=== PATIENT | male | born 1930 | race Caucasian/White ===

== ENCOUNTER 2016-11-14 08:57 | Outpatient (RCR) | payer MEDICARE | END 2017-02-12 | disposition home or self-care (01) | LOC: ONC 08:57 | PROVIDERS: ATTEND Radiology Radiation Oncology | DX: C61 Malignant neoplasm of prostate (principal) | CPT/HCPCS: 36415; 84153 ==

== ENCOUNTER 2017-11-09 08:30 | Outpatient (RCR) | payer MEDICARE | END 2018-02-07 | disposition home or self-care (01) | LOC: ONC 08:30 | PROVIDERS: ATTEND Radiology Radiation Oncology | DX: C61 Malignant neoplasm of prostate (principal) | CPT/HCPCS: 36415; 84153 ==

== ENCOUNTER 2018-10-10 09:54 | Outpatient (RCR) | payer MEDICARE | END 2019-01-08 | disposition home or self-care (01) | LOC: ONC 09:54 | PROVIDERS: ATTEND Radiology Radiation Oncology | DX: C61 Malignant neoplasm of prostate (principal) | CPT/HCPCS: 36415; 84153 ==

== ENCOUNTER → 2019-10-09 | Outpatient (CLI) | payer MEDICARE | LOC: EDSTATUS 01-09 08:51 → ONC 08:52 | PROVIDERS: ATTEND Radiology Radiation Oncology | DX: C61 Malignant neoplasm of prostate (principal) | CPT/HCPCS: 84153 ==

== ENCOUNTER → 2020-10-09 | Outpatient (CLI) | payer MEDICARE | LOC: ONC 11:43 | PROVIDERS: ATTEND Radiology Radiation Oncology | DX: C61 Malignant neoplasm of prostate (principal) | CPT/HCPCS: 84153 ==

== ENCOUNTER → 2021-09-15 | Outpatient (CLI) | payer MEDICARE ==
--- NOTE | 2021-09-15 10:33 | Diagnostic Imaging Report ---
PROCEDURE: US Gallbladder. TECHNIQUE: Multiple real-time grayscale images were obtained over the right upper quadrant in various projections. INDICATION: Right upper quadrant abdominal pain. COMPARISON: None FINDINGS: Liver is normal in size, shape, and echogenicity. No focal hepatic masses are seen. Portal vein shows normal hepatopetal flow. There is no sonographic evidence of intra or extrahepatic biliary ductal dilatation. Common bile duct is within normal limits at 5 mm in diameter. Gallbladder is visualized. There is no cholelithiasis, gallbladder wall thickening, nor pericholecystic free fluid. Visualized portions of the head and proximal body of pancreas are unremarkable. Distal body and tail are not well visualized secondary to overlying bowel gas. Visualized portions of abdominal aorta and IVC are unremarkable. There is no ascites. Right kidney measures 10 cm in length. Multiple large, but anechoic and benign appearing cysts are identified involving the right kidney. Largest measures 8.1 x 6 x 6 cm. IMPRESSION: 1. No cholelithiasis or sonographic evidence of acute cholecystitis. 2. Multiple large right renal cysts. Dictated by: Dictated on workstation # [id number]
== END ==
LOC: RAD 08:15
PROVIDERS: ATTEND Nurse Practitioner
DX: N28.1 Cyst of kidney, acquired (principal)
CPT/HCPCS: 76705

== ENCOUNTER → 2021-09-21 | Outpatient (CLI) | payer MEDICARE ==
[~2021-09-21] MED LIST: CATHETER FLUSH 10 ML SYR IVP PRN
--- NOTE | 2021-09-21 13:09 | Diagnostic Imaging Report ---
INDICATION: Right upper quadrant pain. EXAMINATION: HIDA scan, 09/21/2021. FINDINGS: After uneventful administration of 5.15 mCi of technetium mebrofenin intravenously, subsequent imaging was performed with prompt homogeneous uptake throughout the liver. The gallbladder and small bowel loops seen within less than 60 minutes. Subsequent administration of 8 ounces of Ensure ingested orally with continued imaging performed. Ejection fraction is calculated at 30.8%. IMPRESSION: 1. No obstructive process. 2. Low ejection fraction suggesting chronic cholecystitis or gallbladder dyskinesia. Dictated by: Dictated on workstation # [id number]
== END ==
LOC: CARD 10:00
PROVIDERS: ATTEND Nurse Practitioner
DX: R10.11 Right upper quadrant pain (principal)
CPT/HCPCS: 78227; A9537

== ENCOUNTER 2021-09-27 10:02 | Outpatient (CLI) | payer MEDICARE ==
[~2021-09-27] VITALS: Ht 182.2 cm; Wt 69.5 kg
[2021-09-27] MEDS ORDERED: AMLO-250 PO ×2 (10:59)
== END 2021-09-27 11:09 | disposition home or self-care (01) ==
LOC: PREOP 10:02
PROVIDERS: ATTEND Surgery
DX: Z01.818 Encounter for other preprocedural examination (principal)

== ENCOUNTER 2021-09-29 07:30 | Day surgery (SDC) | payer MEDICARE ==
[2021-09-29] VITALS (11 sets, daily range): BP systolic 135–162; BP diastolic 64–71
[~2021-09-29] VITALS: Ht 177.8 cm; Wt 69.5 kg
[~2021-09-29 07:30] MED LIST changes: +AMLO-250 PO; -CATHETER FLUSH 10 ML SYR IVP PRN
[2021-09-29] MEDS ORDERED: LIDOCAINE/EPI 2% 1:100,00 (XYLOCAINE) 20 ML VIAL ONE (07:58)
[2021-09-29] MEDS ORDERED: CLINDAMYCIN 600 MG/50 ML IVPB 50 ML IV ONE (08:15)
[2021-09-29] MEDS ORDERED: fentaNYL INJ 100 MCG/2 ML AMP ONE (08:16)
[2021-09-29] MEDS: LACTATED RINGERS 1,000 ML IV PRN ×2 (08:34→09:31)
--- NOTE | 2021-09-29 08:42 | Progress Note-Pre Operative ---
Pre-Operative Progress Note H&P Reviewed The H&P was reviewed, patient examined and no changes noted. Date Seen by Provider: Sep 29, 2021 Time Seen by Provider: 08:42 Date H&P Reviewed: Sep 29, 2021 Time H&P Reviewed: 08:42 Pre-Operative Diagnosis: biliary dyskinesia TATIANA BRAVO DO Sep 29, 2021 08:42
[2021-09-29] MEDS ORDERED: OMEP-401 PO (09:18)
[2021-09-29] MEDS ORDERED: PHENYLEPHRINE 100 MCG/ML 10 ML (ANESTHESIA) SYR ONE (09:27)
[2021-09-29] MEDS ORDERED: ONDANSETRON 4 MG/2 ML (SDV) Z0FRAN ONE (09:28)
[2021-09-29] MEDS ORDERED: ROCURONIUM 50 MG/5 ML (ZEMURON) VIAL IV ONE (09:28)
[2021-09-29] MEDS ORDERED: proPOfol 200 MG/20 ML (DIPRIVAN) VIAL IV ONE (09:28)
[2021-09-29] MEDS ORDERED: LIDOCAINE PF 2% 5 ML (XYLOCAINE) VIAL ONE (09:28)
[2021-09-29] MEDS ORDERED: IOPAMIDOL 61% 30 ML (ISOVUE 300) VIAL DUCT ONE (09:35)
--- NOTE | 2021-09-29 09:50 | Progress Note-Post Operative ---
Post-Operative Progess Note Surgeon (s)/Sewer Head (s) Surgeon TATIANA BRAVO DO Sewer Head: Dr. Lindsey to assist in retraction dissection and closure. Pre-Operative Diagnosis biliary dyskinesia Post-Operative Diagnosis same Procedure & Operative Findings Date of Procedure 09/29/21 Procedure Performed/Findings PROCEDURE: Laparoscopic cholecystectomy with intraoperative cholangiogram. COMPLICATIONS: None. PROCEDURE: The patient was taken to the operating suite and was prepped and draped in sterile fashion. A surgical pause was performed. Just superior to the umbilicus, a 12 mm incision was made. Dissection was taken down to the fascia, which was then scored and grasped with a Madeline and the abdomen was then entered. A 0 Vicryl suture was placed in a [id number] fashion and a Gonzalez trocar was placed and secured. Pneumoperitoneum was achieved. A 5mm trochar place in the subxyphoid and 2 in the right upper quadrant. Adhesions to abdominal wall were taken down with cautery. The gallbladder was then grasped and elevated. The cystic duct, and cystic artery were then dissected out. Clip was placed on the distal portion of the cystic duct which was then partially transected. An arrow catheter was inserted into the duct. The cholangiogram was then performed. No filing defects and contrast made its way into the duodenum. Catheter removed. Clips were placed on proximal portion of the cystic duct and then the duct was then transected. Clips were placed along the proximal and distal portion of the cystic artery which was then transected. Hook cautery was used to dissect the gallbladder from the gallbladder fossa achieving hemostasis. The gallbladder was placed in an Endobag and removed through the 12 mm trocar site. The abdomen was then reinspected. Copious amounts of irrigation were used to irrigate the abdomen and there were no signs of active bleeding. Hemostasis had been achieved. The 12 mm fascial defect was then closed with 0 Vicryl suture that had been placed in a [id number] fashion. The abdomen was then desufflated, the trocars were removed. The abdomen was then washed and dried. The skin was then closed using 4-0 Monocryl in a subcuticular fashion. The abdomen was washed and dried and Skin Affix was place over incisions. Patient tolerated the procedure well without any complications and was taken to the recovery room in stable condition. Anesthesia Type general Estimated Blood Loss Estimated blood loss (mL): minimal Specimens/Packing Specimens Removed gallbladder TATIANA BRAVO DO Sep 29, 2021 09:50
[2021-09-29] MEDS ORDERED: SUGAMMADEX 500 MG/5 ML VIAL (BRIDION) IV ONE (09:51)
[2021-09-29] MEDS ORDERED: DOCU-143 PO (09:51)
[2021-09-29] MEDS ORDERED: ACHD5005 PO (09:51)
[2021-09-29] MEDS ORDERED: SEVOFLURANE (ULTANE) 15 ML INHAL SOLN ONE (09:52)
--- NOTE | 2021-09-29 09:52 | Discharge Inst-Simple/Standard ---
Discharge Inst-Standard Discharge Medications New, Converted or Re-Newed RX: Transmitted to Pharmacy Patient Instructions/Follow Up Plan of Care/Instructions/FU: 2-3 weeks Alexa Activity as Tolerated: No Discharge Diet: Regular Diet Other Inst to Patient Follow up Appt: Make appointment for 2 weeks. Instructions: No lifting greater than 10 pounds. No strenuous activity. May shower in 24 hours, no tub bath or soaking. Use incentive spirometer at home as directed. No Smoking Skin/Wound Care: You have special glue over incision, it will fall off on it's own. Symptoms to Report: Appetite Changes, Extremity Discoloration, Numbness/Tingling, Swelling Increased, Bleeding Excessive, Eyesight Changes, Pain Increased, Urine Color Change, Constipation(Persistent), Fever over 101 degree F, Pain/Pressure in chest, Urinating Difficulty, Cough Up/Vomit Blood, Heart Beat Irreg/Pounding, Pain/Pressure in jaw, Vaginal Bleeding Increase, Cramps in feet or legs, Lightheadedness, Pain/Pressure in shoulder, Diarrhea(Persistent), Memory Changes Suddenly, Questions/Concerns, Weight gain consecutive days, Dizziness/Fainting, Nausea/Vomiting, Shortness of Breath, Weight gain over 2 pounds. If eyes or skin turn yellow notify physician. If questions or concerns contact your physician Or seek help at emergency department. TATIANA BRAVO DO Sep 29, 2021 09:52
[2021-09-29] MEDS ORDERED: ONDANSETRON 4 MG/2 ML (SDV) Z0FRAN IVP PRN (10:15)
[2021-09-29] MEDS ORDERED: MEPERIDINE (DEMEROL) INJ 50 MG/ML IVP ONE (10:15)
[2021-09-29] MEDS ORDERED: fentaNYL INJ 100 MCG/2 ML AMP IVP ONE (10:15)
[2021-09-29] MEDS ORDERED: PROMETHAZINE INJ 25 MG/ML (PHENERGAN) AMP IVP ONE (10:15)
[2021-09-29] MEDS ORDERED: HYDROcodone/APAP 5 MG/325 MG (LORTAB) TAB PO ONE (11:30)
[2021-09-29] MEDS ORDERED: HYDROcodone/APAP 5 MG/325 MG (LORTAB) TAB ONE (11:32)
--- NOTE | 2021-09-29 12:21 | Anesthesia-General Post-Op ---
General Patient Condition Mental Status/LOC: Same as Preop Cardiovascular: Satisfactory Nausea/Vomiting: Absent Respiratory: Satisfactory Pain: Controlled Complications: Absent Post Op Complications Complications None Follow Up Care/Instructions Patient Instructions None needed. Anesthesia/Patient Condition Patient Condition Patient is doing well, no complaints, stable vital signs, no apparent adverse anesthesia problems. No complications reported per nursing. RADHA HERNANDEZ CRNA Sep 29, 2021 12:21
--- NOTE | 2021-09-29 12:52 | Diagnostic Imaging Report ---
HISTORY: Laparoscopic cholecystectomy. COMPARISON: None. TECHNIQUE: Intraoperative fluoroscopy was used for the patient's procedure. There were 29 fluoroscopic images of the right abdomen saved. Fluoroscopy time was 8.1 seconds. FINDINGS: Cannulation of the cystic duct was performed and contrast flows through the bile ducts into the duodenum without obstruction. The distal common bile duct is obscured by overlapping structure. No filling defects are seen in the visible portions of the common bile duct and there is no dilatation. There is no intrahepatic biliary dilatation. IMPRESSION: No filling defects or biliary dilatation is seen. Dictated by: Dictated on workstation # [id number]
== END 2021-09-29 12:30 | disposition home or self-care (01) ==
LOC: SDC 07:30
PROVIDERS: ATTEND Surgery
DX: K81.1 Chronic cholecystitis (principal); K82.8 Other specified diseases of gallbladder; R63.0 Anorexia; Z87.891 Personal history of nicotine dependence; Z79.899 Other long term (current) drug therapy
CPT/HCPCS: 76000; 87081

== ENCOUNTER 2021-10-27 07:32 | Outpatient (CLI) | payer MEDICARE ==
[~2021-10-27] VITALS: Ht 177.8 cm; Wt 69.4 kg
[~2021-10-27 07:32] MED LIST changes: +ACHD5005 PO; +DOCU-143 PO; +OMEP-401 PO
== END 2021-10-27 13:37 | disposition home or self-care (01) ==
LOC: PREOP 07:32
PROVIDERS: ATTEND Surgery
DX: Z01.818 Encounter for other preprocedural examination (principal)

== ENCOUNTER 2021-11-09 10:28 | Day surgery (SDC) | payer MEDICARE ==
[~2021-11-09] VITALS: Ht 178 cm; Wt 69.4 kg
[2021-11-09] MEDS ORDERED: LACTATED RINGERS 1,000 ML IV STA (10:31)
[2021-11-09] MEDS ORDERED: LACTATED RINGERS 1,000 ML IV ONE (10:35)
[2021-11-09 10:40] VITALS: BP 152/67
[2021-11-09] MEDS ORDERED: HURRICAINE EXT TUBE (BENZOCAINE) XX PRN (10:45)
[2021-11-09] MEDS ORDERED: proPOfol 200 MG/20 ML (DIPRIVAN) VIAL IV ONE (10:54)
--- NOTE | 2021-11-09 11:03 | Progress Note-Pre Operative ---
Pre-Operative Progress Note H&P Reviewed The H&P was reviewed, patient examined and no changes noted. Date Seen by Provider: Nov 09, 2021 Time Seen by Provider: 11:03 Date H&P Reviewed: Nov 09, 2021 Time H&P Reviewed: 11:03 Pre-Operative Diagnosis: wt loss, right upper quadrant pain TATIANA BRAVO DO Nov 09, 2021 11:03
[2021-11-09] MEDS ORDERED: PANT40TA2 PO (11:20)
[2021-11-09] MEDS ORDERED: SUCR1TAB36 PO (11:20)
--- NOTE | 2021-11-09 11:21 | Discharge Inst-Simple/Standard ---
Discharge Inst-Standard Discharge Medications New, Converted or Re-Newed RX: Transmitted to Pharmacy Patient Instructions/Follow Up Plan of Care/Instructions/FU: 2 weeks Alexa Activity as Tolerated: Yes Discharge Diet: Regular Diet (gastritis diet) TATIANA BRAVO DO Nov 09, 2021 11:21
[2021-11-09 11:22] VITALS: BP 135/63
--- NOTE | 2021-11-09 11:23 | Progress Note-Post Operative ---
Post-Operative Progess Note Surgeon (s)/Transmitter Chief (s) Surgeon TATIANA BRAVO DO Transmitter Chief: na Pre-Operative Diagnosis wt loss, right upper quadrant pain Post-Operative Diagnosis gastritis, hiatal hernia Procedure & Operative Findings Date of Procedure 11/09/21 Procedure Performed/Findings egd c biopsies Anesthesia Type per anaesthetic technician Estimated Blood Loss Estimated blood loss (mL): none Specimens/Packing Specimens Removed antrum, body, ge TATIANA BRAVO DO Nov 09, 2021 11:23
[2021-11-09 11:25] VITALS: BP 128/62
--- NOTE | 2021-11-09 11:35 | Anesthesia-General Post-Op ---
MAC Patient Condition Mental Status/LOC: Same as Preop Cardiovascular: Satisfactory Nausea/Vomiting: Absent Respiratory: Satisfactory Pain: Controlled Complications: Absent Post Op Complications Complications None Follow Up Care/Instructions Patient Instructions None needed. Anesthesiology Discharge Order Discharge Order Patient is doing well, no complaints, stable vital signs, no apparent adverse anesthesia problems. No complications reported per nursing. RADHA HERNANDEZ CRNA Nov 09, 2021 11:35
[2021-11-09 11:55] VITALS: BP 151/66
--- NOTE | 2021-11-09 18:19 | OPERATIVE REPORT ---
DATE OF SERVICE: 11/09/2021 PREOPERATIVE DIAGNOSES: Weight loss, right upper quadrant abdominal pain. POSTOPERATIVE DIAGNOSES: Gastritis and hiatal hernia. PROCEDURES PERFORMED: EGD with biopsy. SURGEON: Tatiana Liu DO ANESTHESIA: Per FLATCAR WHACKER. ESTIMATED BLOOD LOSS: None. COMPLICATIONS: None. SPECIMENS: Antrum, body and GE junction. INDICATIONS FOR PROCEDURE: The patient is an 89-year-old male with some weight loss and right upper quadrant abdominal pain. He is status post cholecystectomy. He wishes to have an EGD performed for further evaluation. He understands the risks and benefits and consent was signed in the chart. DESCRIPTION OF PROCEDURE: The patient was taken to endoscopy suite and placed in the left lateral recumbent position. Timeout was performed. Scope was inserted in mouth, down the esophagus, stomach and into the duodenum without difficulty. No polyps, masses or ulcerations within the duodenum. Scope was slowly retracted back into the stomach, where it was further insufflated. Erythematous changes throughout the stomach present. Biopsy of the antrum and body were obtained. No masses or ulcerations. He does have some polyps, they are benign in appearance. Scope was retroflexed noting a hiatal hernia, no other pathology. Scope was returned to its normal position, slowly withdrawn to distal esophagus. Biopsy of the GE junction was obtained. No polyps, masses or ulcerations. Scope was slowly retracted back until completely remove noting no other pathology. The patient tolerated the procedure well without any complications and taken to the recovery room recovery room in stable condition. RECOMMENDATIONS: The patient will be started on Protonix 40 mg daily and Carafate 1 gram four times a day. We will start his famotidine. To see how he is doing, we will follow up on biopsies in 2 weeks. Any issues before that be seen at that time. Job ID: [id number] DocumentID: [id number] Dictated Date: 11/09/2021 11:26:11 Senior Receptionist Date: 11/09/2021 18:17:56 Dictated By: TATIANA LIU DO
== END 2021-11-09 12:00 | disposition home or self-care (01) ==
LOC: ENDO 10:28
PROVIDERS: ATTEND Surgery
DX: K29.70 Gastritis, unspecified, without bleeding (principal); K44.9 Diaphragmatic hernia without obstruction or gangrene; K31.7 Polyp of stomach and duodenum; Z87.891 Personal history of nicotine dependence; Z85.46 Personal history of malignant neoplasm of prostate

== ENCOUNTER 2021-12-05 13:51 | Emergency (ER) | payer MEDICARE ==
[~2021-12-05] VITALS: Ht 180.3 cm; Wt 63.5 kg
[~2021-12-05 13:51] MED LIST changes: +PANT40TA2 PO; +SUCR1TAB36 PO
--- NOTE | 2021-12-05 14:18 | ED Respiratory ---
General Chief Complaint: Respiratory Problems Stated Complaint: FLUID IN LUNGS/SOB Source: patient Exam Limitations: no limitations History of Present Illness Date Seen by Provider: Dec 05, 2021 Time Seen by Provider: 14:13 Initial Comments Patient is a 89-year-old male with a history of hypertension who presents to the ED with shortness of breath. Shortness of breath over the past 6 months. Worse with walking. He states symptoms became worse over the past 3 to 4 weeks. He states he had his gallbladder removed about a month and a half ago by Dr. Bravo. He reports continues pain in his upper abdomen since the surgery. Had a recent EGD by Dr. Bravo. Reports mild dry cough. States he had a recent CT scan of the chest that showed fluid in his lungs. Denies any chest pain at this time. No fever, vomiting, diarrhea. Patient does not wear oxygen at home. Denies of any fever, urinary symptoms, dizziness, visual changes, neck. No recent travels or surgeries. Allergies and Home Medications Allergies Coded Allergies: doxycycline (Verified Allergy, Mild, 09/29/21) Penicillins (Unverified Allergy, Unknown, Hives, 09/27/21) Patient Home Medication List Home Medication List Reviewed: Yes Amlodipine Besylate (Amlodipine Besylate) 5 Mg Tablet, 5 MG PO DAILY, (Reported) Entered as Reported by: GRETTA DOWNS on 09/27/21 1059 Docusate Sodium (Colace) 100 Mg Capsule, 100 MG PO BID Prescribed by: TATIANA BRAVO on 09/29/21 0951 Pantoprazole Sodium (Protonix) 40 Mg Tablet.dr, 40 MG PO DAILY Prescribed by: TATIANA BRAVO on 11/09/21 1120 Sucralfate (Carafate) 1 Gram Tablet, 1 GM PO QID Prescribed by: TATIANA BRAVO on 11/09/21 1120 Review of Systems Review of Systems Constitutional: No chills, No diaphoresis, No malaise, No weakness EENTM: No blurred vision, No double vision Respiratory: cough, short of breath Cardiovascular: chest pain; No edema, No Hx of Intervention, No syncope Gastrointestinal: No abdominal pain, No nausea, No vomiting Genitourinary: No decreased output Musculoskeletal: No back pain, No joint pain Skin: No change in color, No change in hair/nails All Other Systems Reviewed Negative Unless Noted: Yes Past Hpkqwws-Kgfrjs-Xbrhak Hx Immunizations Up To Date First/Initial COVID19 Vaccinat: 2020 Second COVID19 Vaccination Rolan: 2020 Third COVID19 Vaccination Date: 2020 Seasonal Allergies Seasonal Allergies: Yes Past Medical History Surgeries: Yes (BACK SURGERY) Gallbladder, Orthopedic, Tonsillectomy Respiratory: No Currently Using CPAP: No Cardiac: Yes Hypertension Neurological: No Genitourinary: Yes (PROSTATE CA, 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) Prostate Problems, Polycystic Kidney Disease Gastrointestinal: Yes Gastroesophageal Reflux, Hiatal Hernia, Gall Bladder Disease Musculoskeletal: Yes Arthritis, Back Injury, Chronic Back Pain, Fractures Endocrine: No HEENT: Yes (GLASSES) Cancer: Yes Prostate Did You Recieve Any Treatments: Yes What Type of Treatment Did You: Radiation Psychosocial: Yes (NO LONGER TAKING MEDS) Depression Integumentary: No Blood Disorders: No Adverse Reaction/Blood Tranf: No Physical Exam Vital Signs - First Documented 12/05/21 13:57 Temp 37.2 Pulse 92 Resp 16 B/P (MAP) 175/86 (115) Pulse Ox 96 O2 Delivery Room Air Capillary Refill : Height: '" Weight: lbs. oz. kg; 21.90 BMI Method: General Appearance: WD/WN, no apparent distress Eyes: Bilateral Eye Normal Inspection, Bilateral Eye PERRL, Bilateral Eye EOMI HEENT: PERRL/EOMI, normal ENT inspection, TMs normal, pharynx normal Neck: non-tender, full range of motion, supple Respiratory: chest non-tender, crackles (Left-sided lung) Cardiovascular: regular rate, rhythm, no edema, no gallop, no JVD Gastrointestinal: normal bowel sounds, non tender, soft, no organomegaly Extremities: normal range of motion, non-tender, normal inspection, no pedal edema Neurologic/Psychiatric: land resource specialist II-XII nml as tested, no motor/sensory deficits, alert, normal mood/affect, oriented x 3 Skin: normal color, warm/dry Progress/Results/Core Measures Suspected Sepsis SIRS Temperature: Pulse: Respiratory Rate: Laboratory Tests 12/05/21 14:00: White Blood Count 7.3 Blood Pressure / Mean: Laboratory Tests 12/05/21 14:00: Creatinine 0.85, INR Comment 1.0, Platelet Count 396, Total Bilirubin 0.4 Results/Orders Lab Results Laboratory Tests Test 12/05/21 14:00 12/05/21 15:47 Range/Units White Blood Count 7.3 4.3-11.0 10^3/uL Red Blood Count 4.58 4.30-5.52 10^6/uL Hemoglobin 13.5 13.3-17.7 g/dL Hematocrit 43 40-54 % Mean Corpuscular Volume 94 80-99 fL Mean Corpuscular Hemoglobin 30 25-34 pg Mean Corpuscular Hemoglobin Concent 31 L 32-36 g/dL Red Cell Distribution Width 13.3 10.0-14.5 % Platelet Count 396 130-400 10^3/uL Mean Platelet Volume 9.5 9.0-12.2 fL Immature Granulocyte % (Auto) 0 % Neutrophils (%) (Auto) 67 42-75 % Lymphocytes (%) (Auto) 21 12-44 % Monocytes (%) (Auto) 11 0-12 % Eosinophils (%) (Auto) 1 0-10 % Basophils (%) (Auto) 1 0-10 % Neutrophils # (Auto) 4.9 1.8-7.8 X 10^3 Lymphocytes # (Auto) 1.5 1.0-4.0 X 10^3 Monocytes # (Auto) 0.8 0.0-1.0 X 10^3 Eosinophils # (Auto) 0.1 0.0-0.3 10^3/uL Basophils # (Auto) 0.0 0.0-0.1 10^3/uL Immature Granulocyte # (Auto) 0.0 0.0-0.1 10^3/uL Prothrombin Time 13.6 12.2-14.7 SEC INR Comment 1.0 0.8-1.4 Activated Partial Thromboplast Time 30 24-35 SEC Sodium Level 135 135-145 MMOL/L Potassium Level 4.2 3.6-5.0 MMOL/L Chloride Level 101 98-107 MMOL/L Carbon Dioxide Level 22 21-32 MMOL/L Anion Gap 12 5-14 MMOL/L Blood Urea Nitrogen 10 7-18 MG/DL Creatinine 0.85 0.60-1.30 MG/DL Estimat Glomerular Filtration Rate 83 BUN/Creatinine Ratio 12 Glucose Level 162 H 70-105 MG/DL Calcium Level 9.4 8.5-10.1 MG/DL Corrected Calcium 9.6 8.5-10.1 MG/DL Magnesium Level 2.1 1.6-2.4 MG/DL Total Bilirubin 0.4 0.1-1.0 MG/DL Aspartate Amino Transf (AST/SGOT) 15 5-34 U/L Alanine Aminotransferase (ALT/SGPT) 8 0-55 U/L Alkaline Phosphatase 90 40-136 U/L Myoglobin 42.4 10.0-92.0 NG/ML Troponin I < 0.028 <0.028 NG/ML B-Type Natriuretic Peptide 33.1 <100.0 PG/ML Total Protein 6.6 6.4-8.2 GM/DL Albumin 3.7 3.2-4.5 GM/DL Body Fluid Source THORACEN Body Fluid Color YELLOW Body Fluid Appearance CLEAR Body Fluid pH 7.5 Body Fluid WBC 0.365 10^3/uL Body Fluid RBC 0.001 10^6/uL Body Fl Polynuclear WBCs (%)(Auto) 2.8 % Body Fluid Mononuclear Cells % Auto 97.2 % Body Fluid Slide Review Yes Body Fluid Glucose 129 MG/DL Body Fluid Total Protein 3.3 G/DL Body Fluid Albumin 2.3 G/DL Body Fluid Lactate Dehydrogenase 279 U/L Body Fluid Amylase 98 U/L Body Fluid Triglycerides 15 MG/DL My Orders Orders - JESSICA GARNER Cbc With Automated Diff (12/05/21 14:11) Magnesium (12/05/21 14:11) Chest 1 View, Ap/Pa Only (12/05/21 14:11) Ekg Tracing (12/05/21 14:11) Comprehensive Metabolic Panel (12/05/21 14:11) Myoglobin Serum (12/05/21 14:11) Protime With Inr (12/05/21 14:11) Partial Thromboplastin Time (12/05/21 14:11) O2 (12/05/21 14:11) Monitor-Rhythm Ecg Trace Only (12/05/21 14:11) Ed Iv/Invasive Line Start (12/05/21 14:11) Bnp [place] (12/05/21 14:11) Troponin I [place]leen (12/05/21 14:11) Lidocaine 1% Inj 20 Ml (Xylocaine 1% Inj (12/05/21 15:30) Body Fluid Cell Count (12/05/21 15:15) Glucose,Body Fluid (12/05/21 15:15) Total Protein,Body Fluid (12/05/21 15:15) Body Fluid Culture (12/05/21 15:15) Body Fluid Ph (12/05/21 15:15) Misc Lab (12/05/21 15:15) Amylase,Body Fluid (12/05/21 15:15) Ldh,Body Fluid (12/05/21 15:15) Albumin,Body Fluid (12/05/21 15:15) Body Fluid Triglycerides (12/05/21 15:15) Chest 1 View, Ap/Pa Only (12/05/21 15:48) Anaerobic Culture (12/05/21 15:47) Fungus Culture Sputum Tiss Fld (12/05/21 15:47) Vital Signs/I&O 12/05/21 12/05/21 12/05/21 13:57 13:57 16:51 Temp 37.2 Pulse 92 90 Resp 16 17 B/P (MAP) 175/86 (115) 101/60 Pulse Ox 96 100 O2 Delivery Room Air Capillary Refill : ECG Comment Sinus rhythm with occasional ventricular premature complexes, 81 bpm, QRS duration 77 MS, QTc 404 MS Departure Communication (PCP) Patient presents the ED with ongoing shortness of breath for the past 6 months worse over the past 3 to 4 weeks. Patient had a CT scan of his chest with a large left pleural effusion this week ordered by his PCP DR. Koroma in [place]. Chest x-ray with a large pleural effusion today. He is afebrile with stable vital signs. Slightly hypertensive. Currently on blood pressure medication. Patient is a otherwise healthy individual. No known history of coronary artery disease, CHF, COPD. No appreciated leg swelling. Patient lab work was otherwise unremarkable. Contacted Dr. Bravo general surgery regarding the large left pleural effusion. Dr. Bravo saw the patient here in the ER performed a thoracentesis. This was sent for culture at this time. Will not treat until cultures return. Improvement after post thoracentesis chest x-ray. There may be a component or possibility of a hydropneumothorax that cannot be excluded. He was not hypoxic and did not require oxygen after the procedure. He states he feels much better. Ambulating without feeling short of breath. Chest x-ray did still note moderate mount of fluid. 1110 was removed during the procedure. These results were discussed with Dr. Bravo. He states if patient starts to develop shortness of breath to return back to ED for recheck. Dr. Bravo thought likely has some air and fluid ofrom the procedure resulting in a component hydropneumothorax. Not concern at this time until patient becomes symptomatic or having shortness of breath. He felt like patient can be discharged and await results from thoracentesis. Follow-up with your PCP with the results for further evaluation. Patient and family agree with plan of action. Impression Primary Impression: Large pleural effusion Disposition: HOME, SELF-CARE Condition: Stable Departure-Patient Inst. Decision time for Depature: 16:20 Referrals: COSMO KOROMA DO (PCP/Family) Primary Care Physician Patient Instructions: Thoracentesis (DC) Add. Discharge Instructions: Will need to follow-up with primary care physician regarding results. If any worsening symptoms return back to ED for further evaluation All discharge instructions reviewed with patient and/or family. Voiced understanding. JESSICA GARNER Dec 05, 2021 14:18
[2021-12-05 14:20] LABS: ALBUMIN 3.7 GM/DL (3.2-4.5); POTASSIUM 4.2 MMOL/L (3.6-5.0)
[2021-12-05 14:21] LABS: BASOPHILS % (AUTO) 1 % (0-10); CALCIUM 9.4 MG/DL (8.5-10.1); EOSINOPHILS # (AUTO) 0.1 10^3/uL (0.0-0.3); EOSINOPHILS % (AUTO) 1 % (0-10); HEMATOCRIT 43 % (40-54); HEMOGLOBIN 13.5 g/dL (13.3-17.7); LYMPHOCYTES # (AUTO) 1.5 X 10^3 (1.0-4.0); LYMPHOCYTES % (AUTO) 21 % (12-44); MEAN CORPUSCULAR HEMOGLOBIN 30 pg (25-34); MEAN CORPUSCULAR HGB CONC 31 g/dL (32-36); MEAN CORPUSCULAR VOLUME 94 fL (80-99); MEAN PLATELET VOLUME 9.5 fL (9.0-12.2); MONOCYTES # (AUTO) 0.8 X 10^3 (0.0-1.0); MONOCYTES % (AUTO) 11 % (0-12); NEUTROPHILS # (AUTO) 4.9 X 10^3 (1.8-7.8); NEUTROPHILS % (AUTO) 67 % (42-75); PLATELET COUNT 396 10^3/uL (130-400); WHITE BLOOD COUNT 7.3 10^3/uL (4.3-11.0)
[2021-12-05 14:23] LABS: TOTAL PROTEIN 6.6 GM/DL (6.4-8.2)
[2021-12-05 14:25] LABS: BILIRUBIN,TOTAL 0.4 MG/DL (0.1-1.0); PROTHROMBIN TIME PATIENT 13.6 SEC (12.2-14.7)
[2021-12-05 14:26] LABS: CREATININE SERUM 0.85 MG/DL (0.60-1.30)
[2021-12-05 14:29] LABS: MAGNESIUM 2.1 MG/DL (1.6-2.4)
--- NOTE | 2021-12-05 14:46 | Diagnostic Imaging Report ---
Indication: Chest pain. Comparison: None. Discussion: Single portable upright view of the chest was obtained. Large left pleural effusion. The heart borders are obscured. The right lung is well aerated. No pneumothorax or osseous abnormality. Impression: 1. Large left pleural effusion. Dictated by: Dictated on workstation # [id number]
[2021-12-05] MEDS ORDERED: LIDOCAINE 1% INJ 20 ML VIAL INJ NR (15:30)
[2021-12-05 16:10] LABS: BODY FLUID RBC COUNT 0.001 10^6/uL; BODY FLUID WBC TOTAL COUNT 0.365 10^3/uL
[2021-12-05 16:20] LABS: ALBUMIN,BODY FLUID 2.3 G/DL; AMYLASE,BODY FLUID 98 U/L; BODY FLUID APPEARENCE CLEAR; BODY FLUID COLOR YELLOW; BODY FLUID SOURCE THORACEN; GLUCOSE,BODY FLUID 129 MG/DL; LDH,BODY FLUID 279 U/L; TOTAL PROTEIN,BODY FLUID 3.3 G/DL
--- NOTE | 2021-12-05 16:37 | Diagnostic Imaging Report ---
INDICATION: Post thoracentesis. TECHNIQUE: Single view chest 4:17 PM. CORRELATION STUDY: 12/05/2021. FINDINGS: There has been interval reduction in size of left pleural effusion post thoracentesis. Moderate size effusion does remain, seen at the left lung base, as noted. Component of potentially hydropneumothorax not excluded. No apical pneumothorax. Right lung clear and unremarkable. Mediastinal structures are grossly stable with cardiac enlargement. Prior vertebroplasty changes. IMPRESSION: Reduction in size of left pleural effusion post thoracentesis. Moderate amount of fluid does remain. Component of hydropneumothorax at the left lung base not completely excluded. No apical pneumothorax. Follow-up imaging recommended. Dictated by: Dictated on workstation # [id number]
[2021-12-05 16:50] LABS: BODY FLUID PH 7.5
[2021-12-05 16:51] VITALS: BP 101/60
--- NOTE | 2021-12-05 18:52 | Consultation - Surgery ---
History of Present Illness History of Present Illness Patient Consulted On(ирина/time) 12/05/21 16:47 Date Seen by Provider: Dec 05, 2021 Time Seen by Provider: 16:47 History of Present Illness Consult requested by Jaden Mariee for left pleural effusion. Seen and evaluated in ED. Patient is an 89 year old male that presented to the ED for increasing shortness of breath. Has having increasing symptoms over the 3-4 weeks. Had imaging demonstrating a left pleural effusion. Ambulating makes symptoms worse. Resting makes it slightly better. Has had epigastric abdominal pain, about the same. Chest x ray today demonstrating large left pleural effusion. Allergies and Home Medications Allergies Coded Allergies: doxycycline (Verified Allergy, Mild, 09/29/21) Penicillins (Unverified Allergy, Unknown, Hives, 09/27/21) Patient Home Medication List Home Medication List Reviewed: Yes Amlodipine Besylate (Amlodipine Besylate) 5 Mg Tablet, 5 MG PO DAILY, (Reported) Entered as Reported by: GRETTA DOWNS on 09/27/21 1059 Docusate Sodium (Colace) 100 Mg Capsule, 100 MG PO BID Prescribed by: TATIANA BRAVO on 09/29/21 0951 Pantoprazole Sodium (Protonix) 40 Mg Tablet.dr, 40 MG PO DAILY Prescribed by: TATIANA BRAVO on 11/09/21 1120 Sucralfate (Carafate) 1 Gram Tablet, 1 GM PO QID Prescribed by: TATIANA BRAVO on 11/09/21 1120 Past Ctxerxm-[id number]-Kragjr Hx Patient Social History Smoking Status: Former Smoker Former Smoker, Quit: Sep 28, 1967 Type Used: Cigarettes 2nd Hand Smoke Exposure: No Recent Hopitalizations: No Alcohol Use?: No Immunizations Up To Date Date of Influenza Vaccine: Mar 29, 2021 Seasonal Allergies Seasonal Allergies: Yes Surgeries History of Surgeries: Yes (BACK SURGERY) Surgeries: Gallbladder, Orthopedic, Tonsillectomy Respiratory History of Respiratory Disorde: No Cardiovascular History of Cardiac Disorders: Yes Cardiac Disorders: Hypertension Neurological History of Neurological Disord: No Genitourinary History of Genitourinary Disor: Yes (PROSTATE CA, 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) Genitourinary Disorders: Prostate Problems, Polycystic Kidney Disease Gastrointestinal History of Gastrointestinal Di: Yes Gastrointestinal Disorders: Gastroesophageal Reflux, Hiatal Hernia, Gall Bladder Disease Musculoskeletal History of Musculoskeletal Dis: Yes Musculoskeletal Disorders: Arthritis, Back Injury, Chronic Back Pain, Fractures Endocrine History of Endocrine Disorders: No HEENT History of HEENT Disorders: Yes (GLASSES) Cancer History of Cancer: Yes Cancer: Prostate Psychosocial History of Psychiatric Problem: Yes (NO LONGER TAKING MEDS) Behavioral Health Disorders: Depression Integumentary History of Skin or Integumenta: No Blood Transfusions History of Blood Disorders: No Adverse Reaction to a Blood Tr: No Reviewed Nursing Assessment Reviewed/Agree w Nursing PMH: Yes Family Medical History Significant Family History: No Pertinent Family Hx Review of Systems-General Constitutional: No diaphoresis; weakness, weight loss EENTM: No blurred vision, No double vision Respiratory: cough, dyspnea on exertion, short of breath Gastrointestinal: abdominal pain; No nausea, No vomiting Genitourinary: No decreased output, No discharge Musculoskeletal: No gout, No joint pain, No neck pain Skin: No change in color, No change in hair/nails Psychiatric/Neurological: Denies Anxiety, Denies Depressed, Denies Emotional Problems All Other Systems Reviewed Negative Unless Noted: Yes (Negative excepted noted.) Physical Exam-General Problems Physical Exam Vital Signs Vital Signs - First Documented 12/05/21 13:57 Temp 37.2 Pulse 92 Resp 16 B/P (MAP) 175/86 (115) Pulse Ox 96 O2 Delivery Room Air Capillary Refill : General Appearance: no apparent distress, thin HEENT: PERRL/EOMI, normal ENT inspection Neck: non-tender, supple Respiratory: chest non-tender, no respiratory distress, no accessory muscle use Cardiovascular: regular rate, rhythm, no JVD Gastrointestinal: non tender, soft Rectal: deferred Back: normal inspection, no CVA tenderness Extremities: non-tender, normal inspection Neurologic/Psychiatric: alert, normal mood/affect, oriented x 3 Skin: normal color, warm/dry Lymphatic: no adenopathy Data Review Labs Laboratory Tests 12/05/21 14:00: White Blood Count 7.3, Red Blood Count 4.58, Hemoglobin 13.5, Hematocrit 43, Mean Corpuscular Volume 94, Mean Corpuscular Hemoglobin 30, Mean Corpuscular Hemoglobin Concent 31L, Red Cell Distribution Width 13.3, Platelet Count 396, Mean Platelet Volume 9.5, Immature Granulocyte % (Auto) 0, Neutrophils (%) (Auto) 67, Lymphocytes (%) (Auto) 21, Monocytes (%) (Auto) 11, Eosinophils (%) (Auto) 1, Basophils (%) (Auto) 1, Neutrophils # (Auto) 4.9, Lymphocytes # (Auto) 1.5, Monocytes # (Auto) 0.8, Eosinophils # (Auto) 0.1, Basophils # (Auto) 0.0, Immature Granulocyte # (Auto) 0.0, Prothrombin Time 13.6, INR Comment 1.0, Activated Partial Thromboplast Time 30, Sodium Level 135, Potassium Level 4.2, Chloride Level 101, Carbon Dioxide Level 22, Anion Gap 12, Blood Urea Nitrogen 10, Creatinine 0.85, Estimat Glomerular Filtration Rate 83, BUN/Creatinine Ratio 12, Glucose Level 162H, Calcium Level 9.4, Corrected Calcium 9.6, Magnesium Level 2.1, Total Bilirubin 0.4, Aspartate Amino Transf (AST/SGOT) 15, Alanine Aminotransferase (ALT/SGPT) 8, Alkaline Phosphatase 90, Myoglobin 42.4, Troponin I < 0.028, B-Type Natriuretic Peptide 33.1, Total Protein 6.6, Albumin 3.7 12/05/21 15:47: Body Fluid Source THORACEN, Body Fluid Color YELLOW, Body Fluid Appearance CLEAR, Body Fluid pH 7.5, Body Fluid WBC 0.365, Body Fluid RBC 0.001, Body Fl Polynuclear WBCs (%)(Auto) 2.8, Body Fluid Mononuclear Cells % Auto 97.2, Body Fluid Slide Review Yes, Body Fluid Glucose 129, Body Fluid Total Protein 3.3, Body Fluid Albumin 2.3, Body Fluid Lactate Dehydrogenase 279, Body Fluid Amylase 98, Body Fluid Triglycerides 15 Assessment/Plan Assessment/Plan Assessment/Plan shortness of breath left pleural effusion Patient and family understand risks and benefits of u/s guided thoracentesis wish to proceed. Procedure: Left u/s guided throacentesis: DESCRIPTION OF PROCEDURE: The patient was prepped and draped in sterile fashion after ultrasound was used to isolate the best pocket for drainage. Local anesthetic was infiltrated. An 11 blade scalpel was then used to make a small incision. The [id number] needle and catheter were then advanced through the left posterio r chest wall until straw-colored fluid was withdrawn. The catheter was advanced, and the needle was removed. The 1100 mL of straw-colored fluid was withdrawn. The catheter was then removed, and a sterile bandage was applied. The patient tolerated procedure well without any complications. Chest x ray pending TATIANA BRAVO DO Dec 05, 2021 18:52
== END 2021-12-05 16:53 | disposition home or self-care (01) ==
LOC: EDUNIT# 13:51 → ER 13:53
DX: J90 Pleural effusion, not elsewhere classified (principal)
CPT/HCPCS: 36415; 71045; 80053; 82042; 82150; 82945; 83615; 83735; 83874; 83880; 83986; 84157; 84478; 84484; 85025; 85610; 85730; 87070; 87075; 87101; 87205; 89051; 93005; 93041

== ENCOUNTER → 2022-02-28 | Outpatient (CLI) | payer MEDICARE ==
--- NOTE | 2022-02-28 15:05 | Diagnostic Imaging Report ---
INDICATION: Malignant tumor of the lung. TECHNIQUE: Serum blood glucose level at the time of injection was 119 mg/dL. The patient was administered 11.9 mCi of F18 FDG intravenously in the right antecubital location and whole body PET imaging was performed. In addition, a noncontrast CT was performed for attenuation correction and anatomic correlation. COMPARISON: No prior PET/CT studies are available for comparison. FINDINGS: There is symmetric activity throughout the brain. The soft tissues of the neck are unremarkable. There is a hypermetabolic mass in the left lung anteromedial at approximately 4.5 cm in diameter. This demonstrates a SUV max of 9.2. There is a soft tissue mass in the right paraspinous soft tissues as well at the level of the mid thoracic spine with an SUV max of 5.9. There is some low-level activity along the pleura along the left lateral chest wall as well. The patient does have a large left effusion. The possibility of pleural involvement by neoplasm cannot be entirely excluded. The right lung is unremarkable. The abdomen and pelvis demonstrate physiologic activity throughout the GI and tracts. The lower extremities are unremarkable. IMPRESSION: Large hypermetabolic left upper lobe lung mass, consistent with primary lung neoplasm. There is also a soft tissue mass in the right paraspinous location at the level of the mid thoracic spine, likely a metastatic lesion. There is a large left sided pleural effusion. There appears to be some low level hypermetabolism involving the pleura and pleural metastatic disease cannot be entirely excluded. Dictated by: Dictated on workstation # [id number]
== END ==
LOC: RAD 10:15
PROVIDERS: ATTEND Internal Medicine Hematology & Oncology
DX: C34.90 Malignant neoplasm of unspecified part of unspecified bronchus or lung (principal); J90 Pleural effusion, not elsewhere classified; R91.8 Other nonspecific abnormal finding of lung field
CPT/HCPCS: 78816; A9552

== ENCOUNTER → 2022-03-04 | Outpatient (RCR) | payer MEDICARE ==
[2022-02-18 11:30] LABS: BASOPHILS % (AUTO) 1 % (0-10); EOSINOPHILS % (AUTO) 1 % (0-10); HEMATOCRIT 45 % (40-54); HEMOGLOBIN 14.5 g/dL (13.3-17.7); LYMPHOCYTES # (AUTO) 1.2 10^3/uL (1.0-4.0); LYMPHOCYTES % (AUTO) 15 % (12-44); MEAN CORPUSCULAR HEMOGLOBIN 29 pg (25-34); MEAN CORPUSCULAR HGB CONC 32 g/dL (32-36); MEAN CORPUSCULAR VOLUME 91 fL (80-99); MEAN PLATELET VOLUME 9.2 fL (9.0-12.2); MONOCYTES # (AUTO) 0.6 10^3/uL (0.0-1.0); MONOCYTES % (AUTO) 8 % (0-12); NEUTROPHILS % (AUTO) 76 % (42-75); PLATELET COUNT 385 10^3/uL (130-400); WHITE BLOOD COUNT 7.9 10^3/uL (4.3-11.0)
[2022-02-18 12:07] LABS: ALBUMIN 3.9 GM/DL (3.2-4.5); BILIRUBIN,TOTAL 0.6 MG/DL (0.1-1.0); CALCIUM 9.7 MG/DL (8.5-10.1); CREATININE SERUM 0.81 MG/DL (0.60-1.30); POTASSIUM 4.4 MMOL/L (3.6-5.0); TOTAL PROTEIN 6.9 GM/DL (6.4-8.2)
== END | disposition home or self-care (01) ==
LOC: ONC 02-18 10:34
PROVIDERS: ATTEND Internal Medicine Hematology & Oncology
DX: Z51.0 Encounter for antineoplastic radiation therapy (principal); C34.92 Malignant neoplasm of unspecified part of left bronchus or lung; J90 Pleural effusion, not elsewhere classified; K59.00 Constipation, unspecified; K44.9 Diaphragmatic hernia without obstruction or gangrene; K31.9 Disease of stomach and duodenum, unspecified; Z92.3 Personal history of irradiation; Z85.46 Personal history of malignant neoplasm of prostate
CPT/HCPCS: 80053; 82378; 84153; 85025; G0463; 36415; 77290; 77334; 99203; 99204; 99213

== ENCOUNTER → 2022-03-07 | Outpatient (CLI) | payer MEDICARE ==
[2022-03-07] VITALS (8 sets, daily range): BP systolic 128–175; BP diastolic 58–78
[~2022-03-07] MED LIST changes: +HYDROcodone/APAP 5 MG/325 MG (LORTAB) TAB PO PRN; +LIDOCAINE 1% INJ 10 ML VIAL INJ ONE; +LIDOCAINE 1% INJ 10 ML VIAL ONE; +MIDAZOLAM 2 MG/2 ML (VERSED) VIAL IVP ONE; +MIDAZOLAM 2 MG/2 ML (VERSED) VIAL ONE; +NS IV 1000 ML 1,000 ML IV STA; +NS IV 1000 ML 1,000 ML ONE; +fentaNYL INJ 100 MCG/2 ML AMP IVP ONE; +fentaNYL INJ 100 MCG/2 ML AMP ONE
[2022-03-07 07:34] LABS: HEMATOCRIT 43 % (40-54); HEMOGLOBIN 13.9 g/dL (13.3-17.7); MEAN CORPUSCULAR HEMOGLOBIN 30 pg (25-34); MEAN CORPUSCULAR HGB CONC 32 g/dL (32-36); MEAN CORPUSCULAR VOLUME 93 fL (80-99); MEAN PLATELET VOLUME 9.7 fL (9.0-12.2); PLATELET COUNT 389 10^3/uL (130-400); WHITE BLOOD COUNT 9.6 10^3/uL (4.3-11.0)
[2022-03-07 08:15] LABS: INR 1.1 (0.8-1.4)
--- NOTE | 2022-03-07 09:53 | Pre-Op Note & Conscious Sedat ---
Pre-Operative Progress Note Date of Available H&P: Mar 07, 2022 Date H&P Reviewed: Mar 07, 2022 Time H&P Reviewed: 08:00 Pre-Op Diagnosis: paraspinous mass Conscious Sedation Pre-Proced Time 08:00 ASA Score 2 For ASA 3 and 4: Consider anesthesia and medical clearance. Also, for patients with a history of failed moderate sedation consider anesthesia. Airway Lungs Heart ASA score ASA 1: a normal healthy patient ASA 2: a patient with a mild systemic disease (mid diabetes, controlled hypertension, obesity ASA 3: a patient with a severe systemic disease that limits activity (angina, COPD, prior Myocardial infarction) ASA 4: a patient with an incapacitating disease that is a constant threat to life (CHF, renal failure) ASA 5: a moribund patient not expected to survive 24 hrs. (ruptured aneurysm) ASA 6: a declared brain- patient whose organs are being harvested. For emergent operations, add the letter E after the classification Mallampati Classification Grade 2 Sedation Plan Analgesia, Amnesia, Plan communicated to team members, Discussed options with patient/fam, Discussed risks with patient/fam The patient is an appropriate candidate to undergo the planned procedure, sedation, and anesthesia. The patient immediately re-assessed prior to indication. HERNANDEZ ABDALLA MD Mar 07, 2022 09:53
--- NOTE | 2022-03-07 10:12 | Diagnostic Imaging Report ---
INDICATION: Paraspinous mass. Patient presents for CT-guided biopsy. TECHNIQUE: All CT scans use one or more of the following dose optimizing techniques: automated exposure control, MA and/or KvP adjustment based on patient size and exam type or iterative reconstruction. DETAILS OF THE PROCEDURE: The patient was brought to the CT suite and placed on the table in the prone position. Axial imaging through the chest was performed to evaluate for an appropriate entry site. The procedure was performed utilizing conscious sedation with Radiology nursing and constant patient monitoring. The patient was given a total of 50 um of fentanyl intravenously. The total procedure time was approximately 9 minutes. The posterior thorax was prepped and draped in the usual sterile fashion. A small amount of 1% lidocaine was utilized for local anesthesia. An 18-gauge coaxial Temno needle was advanced and placed with its tip along the margins of the soft tissue mass in a right lower thoracic paraspinous location. Three core biopsies were obtained. The needle was removed and hemostasis was obtained using manual compression. Followup imaging shows no complicating features. IMPRESSION: Successful CT-guided core biopsy of the soft tissue mass in a right lower thoracic paraspinous location utilizing conscious sedation. Pathology results are currently pending. Dictated by: Dictated on workstation # [id number]
== END ==
LOC: SDC 07:06
PROVIDERS: ATTEND Internal Medicine Hematology & Oncology
DX: C34.12 Malignant neoplasm of upper lobe, left bronchus or lung (principal); R22.2 Localized swelling, mass and lump, trunk
CPT/HCPCS: 36415; 77012; 85027; 85610; 85730; 88307; 88341; 88342; 88344

== ENCOUNTER 2022-03-28 14:52 | Outpatient (RCR) | payer MEDICARE ==
[~2022-03-28] VITALS: Ht 177.8 cm; Wt 59.9 kg
[~2022-03-28 14:52] MED LIST changes: +ACETAMINOPHEN 500 MG TAB (TYLENOL) PO SCH; +HEParin (CENTRAL IV FLUSH) 500 UNIT/5 ML SYR IV PRN; -HYDROcodone/APAP 5 MG/325 MG (LORTAB) TAB PO PRN; -LIDOCAINE 1% INJ 10 ML VIAL INJ ONE; -LIDOCAINE 1% INJ 10 ML VIAL ONE; -MIDAZOLAM 2 MG/2 ML (VERSED) VIAL IVP ONE; -MIDAZOLAM 2 MG/2 ML (VERSED) VIAL ONE; +NS (IVPB) 250 ML IV SCH; -NS IV 1000 ML 1,000 ML IV STA; -NS IV 1000 ML 1,000 ML ONE; +PEMBROLIZUMAB 200 MG in NS (IVPB) 50 ML IV SCH; +diphenhydrAMINE 25 MG TAB (BENADRYL) PO SCH; -fentaNYL INJ 100 MCG/2 ML AMP IVP ONE; -fentaNYL INJ 100 MCG/2 ML AMP ONE
[2022-03-28 15:19] LABS: BASOPHILS % (AUTO) 0 % (0-10); EOSINOPHILS % (AUTO) 1 % (0-10); HEMATOCRIT 40 % (40-54); HEMOGLOBIN 12.7 g/dL (13.3-17.7); LYMPHOCYTES # (AUTO) 0.7 10^3/uL (1.0-4.0); LYMPHOCYTES % (AUTO) 12 % (12-44); MEAN CORPUSCULAR HEMOGLOBIN 30 pg (25-34); MEAN CORPUSCULAR HGB CONC 32 g/dL (32-36); MEAN CORPUSCULAR VOLUME 93 fL (80-99); MEAN PLATELET VOLUME 9.3 fL (9.0-12.2); MONOCYTES # (AUTO) 0.7 10^3/uL (0.0-1.0); MONOCYTES % (AUTO) 13 % (0-12); NEUTROPHILS # (AUTO) 4.4 10^3/uL (1.8-7.8); NEUTROPHILS % (AUTO) 75 % (42-75); PLATELET COUNT 365 10^3/uL (130-400); WHITE BLOOD COUNT 5.8 10^3/uL (4.3-11.0)
[2022-03-28 15:25] LABS: ALBUMIN 3.5 GM/DL (3.2-4.5); POTASSIUM 4.4 MMOL/L (3.6-5.0)
[2022-03-28 15:26] LABS: CALCIUM 9.3 MG/DL (8.5-10.1)
[2022-03-28 15:27] LABS: TOTAL PROTEIN 6.5 GM/DL (6.4-8.2)
[2022-03-28 15:29] LABS: BILIRUBIN,TOTAL 0.3 MG/DL (0.1-1.0)
[2022-03-28 15:31] LABS: CREATININE SERUM 0.8 MG/DL (0.60-1.30)
== END 2022-04-04 | disposition home or self-care (01) ==
LOC: ONC 14:52
PROVIDERS: ATTEND Internal Medicine Hematology & Oncology
DX: Z51.0 Encounter for antineoplastic radiation therapy (principal); Z51.11 Encounter for antineoplastic chemotherapy; C34.92 Malignant neoplasm of unspecified part of left bronchus or lung; J90 Pleural effusion, not elsewhere classified; K59.00 Constipation, unspecified; K44.9 Diaphragmatic hernia without obstruction or gangrene; K31.9 Disease of stomach and duodenum, unspecified; Z85.46 Personal history of malignant neoplasm of prostate
CPT/HCPCS: 36415; 77295; 77300; 77334; 77336; 77385; 77417; 77470; 80053; 82378; 85025; 96360; 96413; 99213

== ENCOUNTER 2022-04-21 13:19 | Outpatient (RCR) | payer MEDICARE ==
[2022-04-21 14:28] LABS: BASOPHILS % (AUTO) 0 % (0-10); EOSINOPHILS % (AUTO) 0 % (0-10); HEMATOCRIT 42 % (40-54); HEMOGLOBIN 13.5 g/dL (13.3-17.7); LYMPHOCYTES # (AUTO) 1.1 10^3/uL (1.0-4.0); LYMPHOCYTES % (AUTO) 18 % (12-44); MEAN CORPUSCULAR HEMOGLOBIN 30 pg (25-34); MEAN CORPUSCULAR HGB CONC 33 g/dL (32-36); MEAN CORPUSCULAR VOLUME 92 fL (80-99); MEAN PLATELET VOLUME 9.3 fL (9.0-12.2); MONOCYTES # (AUTO) 0.6 10^3/uL (0.0-1.0); MONOCYTES % (AUTO) 10 % (0-12); NEUTROPHILS # (AUTO) 4.2 10^3/uL (1.8-7.8); NEUTROPHILS % (AUTO) 71 % (42-75); PLATELET COUNT 358 10^3/uL (130-400); WHITE BLOOD COUNT 5.9 10^3/uL (4.3-11.0)
[2022-04-21 14:48] LABS: ALBUMIN 3.8 GM/DL (3.2-4.5); BILIRUBIN,TOTAL 0.3 MG/DL (0.1-1.0); CALCIUM 9.9 MG/DL (8.5-10.1); CREATININE SERUM 0.77 MG/DL (0.60-1.30); POTASSIUM 4.5 MMOL/L (3.6-5.0); TOTAL PROTEIN 7.1 GM/DL (6.4-8.2)
== END 2022-05-04 | disposition home or self-care (01) ==
LOC: ONC 13:19
PROVIDERS: ATTEND Internal Medicine Hematology & Oncology
DX: Z51.11 Encounter for antineoplastic chemotherapy (principal); C34.92 Malignant neoplasm of unspecified part of left bronchus or lung; J90 Pleural effusion, not elsewhere classified; K59.00 Constipation, unspecified; K44.9 Diaphragmatic hernia without obstruction or gangrene; K31.9 Disease of stomach and duodenum, unspecified; Z85.46 Personal history of malignant neoplasm of prostate; Z92.3 Personal history of irradiation
CPT/HCPCS: 80053; 82378; 84443; 85025; 96360; 96375; 96413; G0463; 36415

== ENCOUNTER 2022-06-01 11:38 | Outpatient (RCR) | payer MEDICARE ==
[2022-05-11 13:22] LABS: BASOPHILS % (AUTO) 0 % (0-10); EOSINOPHILS % (AUTO) 1 % (0-10); HEMATOCRIT 42 % (40-54); LYMPHOCYTES # (AUTO) 1.5 10^3/uL (1.0-4.0); LYMPHOCYTES % (AUTO) 23 % (12-44); MEAN CORPUSCULAR HEMOGLOBIN 30 pg (25-34); MEAN CORPUSCULAR HGB CONC 31 g/dL (32-36); MEAN CORPUSCULAR VOLUME 94 fL (80-99); MEAN PLATELET VOLUME 9.5 fL (9.0-12.2); MONOCYTES # (AUTO) 0.5 10^3/uL (0.0-1.0); MONOCYTES % (AUTO) 8 % (0-12); NEUTROPHILS # (AUTO) 4.4 10^3/uL (1.8-7.8); NEUTROPHILS % (AUTO) 68 % (42-75); PLATELET COUNT 397 10^3/uL (130-400); WHITE BLOOD COUNT 6.5 10^3/uL (4.3-11.0)
[2022-05-11 13:50] LABS: ALBUMIN 3.8 GM/DL (3.2-4.5); BILIRUBIN,TOTAL 0.5 MG/DL (0.1-1.0); CREATININE SERUM 0.83 MG/DL (0.60-1.30); POTASSIUM 4.1 MMOL/L (3.6-5.0); TOTAL PROTEIN 7.2 GM/DL (6.4-8.2)
[2022-06-01 12:03] LABS: BASOPHILS % (AUTO) 1 % (0-10); EOSINOPHILS % (AUTO) 1 % (0-10); HEMATOCRIT 39 % (40-54); HEMOGLOBIN 12.2 g/dL (13.3-17.7); LYMPHOCYTES # (AUTO) 1.2 10^3/uL (1.0-4.0); LYMPHOCYTES % (AUTO) 20 % (12-44); MEAN CORPUSCULAR HEMOGLOBIN 29 pg (25-34); MEAN CORPUSCULAR HGB CONC 31 g/dL (32-36); MEAN CORPUSCULAR VOLUME 94 fL (80-99); MEAN PLATELET VOLUME 9.3 fL (9.0-12.2); MONOCYTES # (AUTO) 0.5 10^3/uL (0.0-1.0); MONOCYTES % (AUTO) 8 % (0-12); NEUTROPHILS # (AUTO) 4.1 10^3/uL (1.8-7.8); NEUTROPHILS % (AUTO) 70 % (42-75); PLATELET COUNT 353 10^3/uL (130-400); WHITE BLOOD COUNT 5.8 10^3/uL (4.3-11.0)
[2022-06-01 12:28] LABS: ALBUMIN 3.6 GM/DL (3.2-4.5); BILIRUBIN,TOTAL 0.4 MG/DL (0.1-1.0); CALCIUM 9.1 MG/DL (8.5-10.1); CREATININE SERUM 0.73 MG/DL (0.60-1.30); POTASSIUM 4.1 MMOL/L (3.6-5.0); TOTAL PROTEIN 6.7 GM/DL (6.4-8.2)
== END 2022-06-04 | disposition home or self-care (01) ==
LOC: ONC 11:38
PROVIDERS: ATTEND Internal Medicine Hematology & Oncology
DX: Z51.11 Encounter for antineoplastic chemotherapy (principal); Z45.2 Encounter for adjustment and management of vascular access device; C34.92 Malignant neoplasm of unspecified part of left bronchus or lung; J90 Pleural effusion, not elsewhere classified; K59.00 Constipation, unspecified; K44.9 Diaphragmatic hernia without obstruction or gangrene; K31.9 Disease of stomach and duodenum, unspecified; Z85.46 Personal history of malignant neoplasm of prostate; Z92.3 Personal history of irradiation
CPT/HCPCS: 80053; 82378; 85025; 96375; 96413; G0463; 36415

== ENCOUNTER 2022-06-23 12:44 | Outpatient (RCR) | payer MEDICARE ==
[2022-06-23 13:29] LABS: BASOPHILS % (AUTO) 0 % (0-10); EOSINOPHILS % (AUTO) 0 % (0-10); HEMATOCRIT 40 % (40-54); HEMOGLOBIN 12.5 g/dL (13.3-17.7); LYMPHOCYTES % (AUTO) 17 % (12-44); MEAN CORPUSCULAR HEMOGLOBIN 29 pg (25-34); MEAN CORPUSCULAR HGB CONC 31 g/dL (32-36); MEAN CORPUSCULAR VOLUME 93 fL (80-99); MEAN PLATELET VOLUME 9.8 fL (9.0-12.2); MONOCYTES # (AUTO) 0.5 10^3/uL (0.0-1.0); MONOCYTES % (AUTO) 8 % (0-12); NEUTROPHILS # (AUTO) 4.4 10^3/uL (1.8-7.8); NEUTROPHILS % (AUTO) 75 % (42-75); PLATELET COUNT 355 10^3/uL (130-400); WHITE BLOOD COUNT 5.9 10^3/uL (4.3-11.0)
[2022-06-23 13:43] LABS: ALBUMIN 3.6 GM/DL (3.2-4.5); BILIRUBIN,TOTAL 0.5 MG/DL (0.1-1.0); CALCIUM 9.8 MG/DL (8.5-10.1); CREATININE SERUM 0.81 MG/DL (0.60-1.30); POTASSIUM 4.4 MMOL/L (3.6-5.0)
== END 2022-07-05 | disposition home or self-care (01) ==
LOC: ONC 12:44
PROVIDERS: ATTEND Internal Medicine Hematology & Oncology
DX: Z51.11 Encounter for antineoplastic chemotherapy (principal); Z45.2 Encounter for adjustment and management of vascular access device; C34.92 Malignant neoplasm of unspecified part of left bronchus or lung; J90 Pleural effusion, not elsewhere classified; K59.00 Constipation, unspecified; K44.9 Diaphragmatic hernia without obstruction or gangrene; K31.9 Disease of stomach and duodenum, unspecified; Z85.46 Personal history of malignant neoplasm of prostate; Z92.3 Personal history of irradiation
CPT/HCPCS: 80053; 82378; 85025; 96360; 96375; 96413; G0463; 36415; 99213

== ENCOUNTER 2022-07-14 12:44 | Outpatient (RCR) | payer MEDICARE ==
[2022-07-14 13:51] LABS: BASOPHILS % (AUTO) 1 % (0-10); EOSINOPHILS % (AUTO) 0 % (0-10); HEMATOCRIT 37 % (40-54); HEMOGLOBIN 11.4 g/dL (13.3-17.7); LYMPHOCYTES # (AUTO) 0.9 10^3/uL (1.0-4.0); LYMPHOCYTES % (AUTO) 13 % (12-44); MEAN CORPUSCULAR HEMOGLOBIN 29 pg (25-34); MEAN CORPUSCULAR HGB CONC 31 g/dL (32-36); MEAN CORPUSCULAR VOLUME 93 fL (80-99); MONOCYTES # (AUTO) 0.5 10^3/uL (0.0-1.0); MONOCYTES % (AUTO) 8 % (0-12); NEUTROPHILS # (AUTO) 5.1 10^3/uL (1.8-7.8); NEUTROPHILS % (AUTO) 78 % (42-75); PLATELET COUNT 355 10^3/uL (130-400); WHITE BLOOD COUNT 6.5 10^3/uL (4.3-11.0)
[2022-07-14 14:18] LABS: ALBUMIN 3.4 GM/DL (3.2-4.5); BILIRUBIN,TOTAL 0.4 MG/DL (0.1-1.0); CALCIUM 9.6 MG/DL (8.5-10.1); CREATININE SERUM 0.75 MG/DL (0.60-1.30); POTASSIUM 4.1 MMOL/L (3.6-5.0); TOTAL PROTEIN 6.6 GM/DL (6.4-8.2)
== END 2022-08-02 | disposition home or self-care (01) ==
LOC: ONC 12:44
PROVIDERS: ATTEND Internal Medicine Hematology & Oncology
DX: Z51.11 Encounter for antineoplastic chemotherapy (principal); C34.92 Malignant neoplasm of unspecified part of left bronchus or lung; K59.00 Constipation, unspecified; K44.9 Diaphragmatic hernia without obstruction or gangrene; K31.9 Disease of stomach and duodenum, unspecified; R63.4 Abnormal weight loss; Z85.46 Personal history of malignant neoplasm of prostate; Z92.3 Personal history of irradiation
CPT/HCPCS: 36415; 80053; 85025; 96375; 96413

== ENCOUNTER 2022-09-01 12:49 | Outpatient (RCR) | payer MEDICARE ==
[2022-08-04 13:25] LABS: BASOPHILS % (AUTO) 0 % (0-10); EOSINOPHILS % (AUTO) 0 % (0-10); HEMATOCRIT 36 % (40-54); HEMOGLOBIN 11.4 g/dL (13.3-17.7); LYMPHOCYTES # (AUTO) 1.2 10^3/uL (1.0-4.0); LYMPHOCYTES % (AUTO) 17 % (12-44); MEAN CORPUSCULAR HEMOGLOBIN 29 pg (25-34); MEAN CORPUSCULAR HGB CONC 32 g/dL (32-36); MEAN CORPUSCULAR VOLUME 92 fL (80-99); MEAN PLATELET VOLUME 9.8 fL (9.0-12.2); MONOCYTES # (AUTO) 0.6 10^3/uL (0.0-1.0); MONOCYTES % (AUTO) 8 % (0-12); NEUTROPHILS # (AUTO) 5.4 10^3/uL (1.8-7.8); NEUTROPHILS % (AUTO) 74 % (42-75); PLATELET COUNT 356 10^3/uL (130-400); WHITE BLOOD COUNT 7.3 10^3/uL (4.3-11.0)
[2022-08-04 13:55] LABS: ALBUMIN 3.5 GM/DL (3.2-4.5); BILIRUBIN,TOTAL 0.5 MG/DL (0.1-1.0); CREATININE SERUM 0.83 MG/DL (0.60-1.30); TOTAL PROTEIN 6.7 GM/DL (6.4-8.2)
== END 2022-09-02 | disposition home or self-care (01) ==
LOC: ONC 12:49
PROVIDERS: ATTEND Internal Medicine Hematology & Oncology
DX: C34.92 Malignant neoplasm of unspecified part of left bronchus or lung (principal); K59.00 Constipation, unspecified; K44.9 Diaphragmatic hernia without obstruction or gangrene; K31.9 Disease of stomach and duodenum, unspecified; R63.4 Abnormal weight loss; Z85.46 Personal history of malignant neoplasm of prostate; Z92.3 Personal history of irradiation
CPT/HCPCS: 80053; 85025